=== PATIENT | female | born 1990 | race Caucasian/White ===

== ENCOUNTER 2017-04-05 17:11 | Emergency (ER) | payer OTHER ==
[~2017-04-05] VITALS: Ht 165.1 cm; Wt 60.0 kg
[2017-04-05 17:15] VITALS: BP 134/97; PULSE 110; RESP 26; TEMP 98.4; O2SAT 98
[2017-04-05 17:37] VITALS: PULSE 84; RESP 16; O2SAT 100
[2017-04-05] MEDS ORDERED: LORazepam 1 MG TAB PO ONE (17:45)
--- NOTE | 2017-04-05 17:55 | PD ---
HPI Chief Complaint: ENT Complaint Time Seen by Provider: 17:21 Travel History International Travel<30 days: No Contact w/Intl Traveler<30days: No Traveled to known affect area: No History of Present Illness HPI Patient is a 26-year-old female who presents to emergency room with complaints of anxiety reaction. Patient reports that she came here from [place] today and the place that she is staying at has bugs. Patient reports concerns that bug went into her right ear, reports that the bug went to both of her eyes and into her left ear. Patient's boyfriend did flush both of her ears with benzyl peroxide. Patient is hyperventilating, reports history of anxiety attacks. Patient concerned that there also may be a cockroach on her lungs. [facility] Past Medical History Anxiety: Yes Depression: Yes Tetanus Vaccination: Unknown Influenza Vaccination: No ?: Not LMP: 03/28/17 Past Surgical History Surgical History: No Previous Surgery Social History Alcohol Use: Yes (occu wine,beer) Tobacco Use: Yes (2 cig a day) Substance Use: No Allergies-Medications (Allergen,Severity, Reaction): Coded Allergies: guaifenesin (Verified Allergy, Unknown, Anaphylaxis, 04/05/17) metronidazole (Verified Allergy, Unknown, Hives, 04/05/17) Review of Systems General / Constitutional: No: Fever Eyes: No: Visual changes HENT: No: Headaches Cardiovascular: No: Chest Pain or Discomfort Respiratory: No: Shortness of Breath Gastrointestinal: No: Abdominal Pain Genitourinary: No: Dysuria Musculoskeletal: No: Pain Skin: No Rash Neurologic: No: Weakness Psychiatric: Positive: Anxiety, No: Depression, Suicidal Ideations, Substance Abuse, Homicidal Ideation Endocrine: No: Polydipsia Hematologic/Lymphatic: No: Easy Bruising Physical Exam Narrative GENERAL: Moderate distress SKIN: Focused skin assessment warm/dry. HEAD: Atraumatic. Normocephalic. EYES: Pupils equal and round. No scleral icterus. No injection or drainage. ENT: No nasal bleeding or discharge. Mucous membranes pink and moist. Patient with no FB in b/l ears, patient with no FB in back of throat, uvula midline with no swelling, posterior pharynx with no swelling, patient talking in full sentences NECK: Trachea midline. No JVD. CARDIOVASCULAR: Regular rate and rhythm. No murmur appreciated. RESPIRATORY: No accessory muscle use. Clear to auscultation. Breath sounds equal bilaterally. GASTROINTESTINAL: Abdomen soft, non-tender, nondistended. Hepatic and splenic margins not palpable. MUSCULOSKELETAL: No obvious deformities. No clubbing. No cyanosis. No edema. NEUROLOGICAL: Awake and alert. No obvious cranial nerve deficits. Motor grossly within normal limits. Normal speech. PSYCHIATRIC: Anxious mood and affect, patient hyperventilating on exam Data Data Last Documented VS Vital Signs Date Time Temp Pulse Resp B/P (MAP) Pulse Ox O2 Delivery O2 Flow Rate FiO2 04/05/17 17:37 84 16 100 Room Air 04/05/17 17:15 98.4 Orders Orders Lorazepam (Ativan) (04/05/17 17:45) Ed Urine Pregnancytest Poc (04/05/17 17:36) Drug Screen, Random Urine (04/05/17 17:36) [facility] Medical Decision Making Medical Screen Exam Complete: Yes Emergency Medical Condition: Yes Medical Record Reviewed: Yes Interpretation(s) Vital Signs Date Time Temp Pulse Resp B/P (MAP) Pulse Ox O2 Delivery O2 Flow Rate FiO2 04/05/17 17:37 84 16 100 Room Air 04/05/17 17:15 98.4 110 26 134/97 (109) 98 Room Air Differential Diagnosis FB in ears, anxiety reaction Narrative Course During the course of the patients emergency department visit, the patients history, examination, and differential diagnosis were reviewed with the patient. The patient was placed on a hospital monitor with oximetry and frequent blood pressure monitoring. Patient was evaluated for possible foreign body in bilateral ears, there was no evidence of foreign bodies or any bedbugs. After patient was reassured, patient was able to calm down. Patient reports history of anxiety attacks, patient most likely with an anxiety reaction today as she did feel a bug going to her right ear and then transverse to her right eye, then her left eye and into her left ear. The patient was initially provided an oral dose of Ativan. The patients laboratory studies were reviewed and remarkable for: Urine test which is negative Patient reevaluated, patient feeling much better at this time. Patient with no foreign bodies and her ears or eyes. Patient no longer hyperventilating at this time. Patient request to be discharged to home. She will return to ER as needed Diagnosis Primary Impression: Anxiety reaction Patient Instructions: General Instructions Additional Instructions: Please follow up with your primary care doctor in 2-3 days Return to the ER if symptoms worsen or progress Return to the ER as needed Disposition: 01 DISCHARGE HOME Condition: Stable Audra Jackson DO Apr 05, 2017 17:55
== END 2017-04-05 18:45 | disposition home or self-care (01) ==
LOC: NEPD 17:11
DX: F41.1 Generalized anxiety disorder (principal); R06.4 Hyperventilation; Z72.0 Tobacco use
CPT/HCPCS: 84703; 99283